=== PATIENT | male | born 1940 | race Caucasian/White ===

== ENCOUNTER 2017-02-15 10:40 | Outpatient (CLI) | payer MEDICARE, BC ==
[~2017-02-15] VITALS: Ht 182.9 cm; Wt 77.3 kg
--- NOTE | ~2017-02-15 | HEMODYNAMI ---
PATIENT:AVIVA BAER MEDICAL RECORD: [id number] : 36 LOCATION:[facility] ADMISSION DATE: 02/15/17 Generatedon:02/15/201713:20 Patient name: AVIVA BAER Patient #: [id number] SSN: [id number] : 1940 Date of study: 02/15/2017 Page: Of Hemodynamic Procedure Report Patient Data Patient Demographics Procedure consent was obtained First Name: AVIVA Gender: Male Last Name: BUFFY : 1940 Middle Initial: DENISHA Age: 77 year(s) Patient #: [id number] Race: SSN: [id number] Additional ID: [id number] Contact details [address]: [address] [place] [address] State: [place] City: [id number] Zip code: [address] Admission Admission Data Admission Date: 02/15/2017 Admission Time: 10:40 Arrival Date: 02/15/2017 Arrival Time: 13:00 Admit Source: Other Insurance Payor: Medicare Height (in.): 72 BSA: 1.97 (m2) Height (cm.): 182.88 BMI: 22.51 (kg/m2) Weight (lbs.): 166 Weight (kg.): 75.3 Lab Results Lab Result Date: 02/15/2017 Lab Result Time: 0:00 Biochemistry Name Units Result Min Max BUN mg/dl 24 --(----)-* 7 18 Creatinine mg/dl 0.9 --(-*--)-- 0.6 1.3 CBC Name Units Result Min Max Hemoglobin g/dl 15.8 --(--*-)-- 13.5 17.5 Procedure Procedure Types Cath Procedure Diagnostic Procedure [facility] w/Coronaries Miscellaneous Procedures Moderate Sedation up to 30 minutes Procedure Description Procedure Date Procedure Date: 02/15/2017 Procedure Start Time: 13:09 Procedure End Time: 13:19 Procedure Staff Name Function Henrry Patel MD Performing Physician Michelle Jessica RT Scrub Torsten George RN Nurse Fatuma Go RT Monitor Procedure Data Cath Procedure Fluoroscopy Diagnostic fluoroscopy Total fluoroscopy Time: 1.1 time: 1.1 min min Diagnostic fluoroscopy Total fluoroscopy dose: 336 dose: 336 mGy mGy Contrast Material Contrast Material Type Amount (ml) Isovue 370 46 Entry Location Entry Primary Successful Side Size Upsize Upsize Entry Closure Succes sful Closure Location (Fr) 1 (Fr) 2 (Fr) Remarks Device Remarks Femoral Right 5 Fr Exoseal artery Estimated blood loss: 5 ml Diagnostic catheters Device Type Used For End Catheter Placement Cordis 5Fr JL 4.0 Left Coronary Catheter (MP) Angiography Cordis 5Fr 3DRC Catheter Right Coronary (MP) Angiography Cordis 5Fr Pigtail LV Angiography Catheter (MP) Procedure Complications No complications Procedure Medications Medication Administration Route Dosage Oxygen NC 2 l/min Lidocaine 2% added to field 20 Heparin Flush Bag added to field 2 bags (1000units/500ml NS) 0.9% NaCl I.V. 100 ml/hr Versed I.V. 1 mg Fentanyl I.V. 50 mcg Fentanyl I.V. 50 mcg Hemodynamics Rest BSA: 1.97 (m2) HGB: 15.8 (g/dl) O2 Consumption: Estimated: 217.78 (ml/min) O2 Co nsumption indexed: Estimated:110.55 (ml/min/m) Heart Rate: 60 (bpm) Pressure Samples Time Site Value (mmHg) Purpose Heart Use Rate(bpm) 13:15 LV 131/10,12 Snapshot 60 13:15 AO 137/60(90) Pullback 60 13:15 LV 138/11,13 Pullback 60 Gradients Valve Time Site 1 Site 2 Mean SEP/DFP Peak To Heart Use (mmHg) (sec/min) Peak Rate (mmHg) (bpm) Aortic 13:15 LV AO 3 15 1 60 138/11,13 137/60(90) Calculations Valve P-P Mean Valve Index Valve Source Name Gradient Area Flow (cm2) Aortic 1 3 1 3 Snapshots Pre Cath Intra NCS Post Cath Vital Signs Time Heart Resp SPO2 etCO2 SX2mycd NIBP (mmHg) Rhythm Pain Sedation Rate (ipm) (%) (mmHg) (mmHg) Status Level (bpm) 12:57:21 67 23 97 0 0 144/73(121) NSR 0 (11) 10(A) , No pain 13:01:37 60 21 93 0 0 141/74(119) NSR 0 (11) 10(A) , No pain 13:05:53 59 17 99 0 0 124/70(107) NSR 0 (11) 10(A) , No pain 13:10:03 59 18 99 0 0 129/71(112) NSR 0 (11) 9(A) , No pain 13:14:15 60 16 100 0 0 127/72(108) NSR 0 (11) 9(A) , No pain 13:18:27 59 18 100 0 0 137/69(111) NSR 0 (11) 10(A) , No pain 13:19:57 59 17 100 0 0 134/64(109) NSR 0 (11) 10(A) , No pain Medications Time Medication Route Dose Verified Delivered Reason Notes Effe ctiveness by by 13:03:07 Oxygen NC 2 Henrry Buffie used for l/min [facility] Luis George RN procedure 13:03:15 Lidocaine 2% added 20ml Henrry Henrry for local to vial [facility] anesthetic field MD CALHOUN 13:03:23 Heparin Flush added 2 Henrry Henrry used for Bag to bags [facility] procedure (1000units/500ml field MD CALHOUN NS) 13:03:32 0.9% NaCl I.V. 100 Henrry Buffie Per ml/hr [facility] Luis George RN physician 13:06:09 Versed I.V. 1 mg Henrry Lanie for [facility] Luis George RN sedation 13:06:15 Fentanyl I.V. 50 Henrry [place] for mcg [facility] Luis George RN sedation 13:09:38 Fentanyl I.V. 50 Henrry [place] for mcg [facility] Luis George RN sedation Procedure Log Time Note 12:35:57 Informed consent obtained and on chart 12:36:03 Diagnostic Cath Status : Elective 12:36:57 Torsten George RN sent for patient. Start room use. 12:36:58 Time tracking: Regular hours 12:37:04 Plan of Care:Hemodynamics will remain stable., Cardiac rhythm will remain stable., Comfort level will be maintained., Respiratory function will remain adequate., Patient/ family verbilizes understanding of procedure., Procedure tolerated without complication., Recovers from procedure without complications.. 12:37:43 Admit Source: Other 12:37:50 Patient Height : 72 cm 12:38:01 Patient Weight : 166 kg 12:38:01 Insurance Payor : Medicare 12:38:13 Arrival Date: 02/15/2017 1:00:00 PM 12:41:16 Lab Result : Hemoglobin 15.8 g/dl 12:41:16 Lab Result : Creatinine 0.9 mg/dl 12:41:16 Lab Result : BUN 24 mg/dl 12:46:16 Patient received from Pre/Post Procedure Room to CCL 1 Alert and oriented. Tansferred to table in Supine position. 12:46:17 Warm blankets applied, and shashi hugger turned on for patient comfort. 12:46:18 Correct patient and procedure confirmed by team. 12:46:18 ECG and BP/O2 sat monitors applied to patient. 12:56:08 Baseline sample Acquired. 12:56:08 Vital chart was started 12:56:12 Rhythm: sinus rhythm 12:56:15 Full Disclosure recording started 12:56:21 H&P Date Dictated: 02/15/2017 Within 30 days and on chart., H&P Addendum completed by physician on day of procedure. (MUST COMPLETE FOR ALL OUTPATIENTS). 12:56:23 Pre-procedure instructions explained to patient. 12:56:23 Pre-op teaching completed and patient verbalized understanding. 12:56:25 Family in waiting room. 12:56:26 Patient NPO since Midnight. 12:57:27 Is the patient allergic to Iodine/contrast media? No. 12:57:29 Was the patient premedicated? No 12:57:34 Is patient on blood thinner?No 12:57:35 Patient diabetic? No. 12:57:39 Previous problem with sedation/anesthesia? No ? 12:57:43 Snore? Yes 12:57:44 Sleep apnea? No 12:57:45 Deviated septum? No 12:57:52 Opens mouth fully? Yes 12:57:53 Sticks out tongue? Yes 12:57:55 Airway obstruction? No ? 12:57:58 Dentures? No ? 12:58:02 Pre procedure: right dorsailis pedis pulse 1+ Palpable, but thready & weak; easily obliterated 12:58:05 Modified Jose Roberto's test Radial > 7 seconds. 12:58:07 Patient pain scale 0/10 ?. 12:58:13 IV patent on arrival in left forearm with 0.9% NaCl at [facility]. 12:58:16 Lab results completed and on chart. 12:58:21 Right groin area was prepped with chlora-prep and draped in sterile fashion 12:58:22 Alarms reviewed by R. N. 12:58:23 Sharps counted by scrub and verified by R.N. 12:58:59 Physician arrived 12:59:00 --------ALL STOP TIME OUT------ 12:59:00 Final Timeout: patient, procedure, and site verified with staff and physician. All members of the team are in agreement. 12:59:04 Right groin site verified by team. 12:59:07 Physical assessment completed. ASA score P 2 - A patient with mild systemic disease as per Henrry Patel MD. 12:59:12 Sedation plan: IV Moderate Sedation Versed, Fentanyl 12:59:27 Use device set Femoral Dx 12:59:28 Acist Syringe opened to sterile field. 12:59:29 Bag Decanter opened to sterile field. 12:59:29 Medline Cath Pack opened to sterile field. 12:59:30 Terumo 5Fr Mequon Sheath opened to sterile field. 12:59:30 St Flynn 260cm J .035 wire opened to sterile field. 13:00:27 Acist Hand Control opened to sterile field. 13:00:28 Acist Manifold opened to sterile field. 13:00:28 Diagnostic Infinity 5Fr Multipack catheter opened to sterile field. 13:00:29 Tegaderm 4 x 4 opened to sterile field. 13:03:07 Oxygen 2 l/min NC was administered by Torsten George RN; used for procedure; 13:03:15 Lidocaine 2% 20ml vial added to field was administered by Henrry Patel MD; for local anesthetic; 13:03:23 Heparin Flush Bag (1000units/500ml NS) 2 bags added to field was administered by Henrry Patel MD; used for procedure; 13:03:32 0.9% NaCl 100 ml/hr I.V. was administered by Torsten George RN; Per physician; 13:06:09 Versed 1 mg I.V. was administered by Buffie George RN; for sedation; 13:06:15 Fentanyl 50 mcg I.V. was administered by Torsten George RN; for sedation; 13:09:11 Procedure started. 13:09:14 Local anesthetic to right femoral artery with Lidocaine 2% by Henrry Patel MD.INITIAL ACCESS ONLY 13:09:28 A 5 Fr sheath was inserted into the Right Femoral artery 13:09:38 Fentanyl 50 mcg I.V. was administered by Torsten George RN; for sedation; 13:10:35 A Cordis 5Fr JL 4.0 Catheter (MP) was advanced over the wire and used for Left Coronary Angiography. 13:11:33 LCA angiography performed. 13:11:39 Injector settings: Ml/sec: 3, Volume: 6, 13:12:11 Catheter removed. 13:12:20 A Cordis 5Fr 3DRC Catheter (MP) was advanced over the wire and used for Right Coronary Angiography. 13:13:30 RCA angiography performed. 13:13:39 Injector settings: Ml/sec: 3, Volume: 6, 13:13:55 Catheter removed. 13:14:05 A Cordis 5Fr Pigtail Catheter (MP) was advanced over the wire and used for LV Angiography. 13:15:06 LV hemodynamics recorded. 13:15:08 LV gram done using MARCUS 13:15:12 Injector settings: Ml/sec: 5, Volume: 15, 13:15:21 EF : 55 % 13:16:22 Catheter removed. 13:16:38 Cordis 5Fr Exoseal opened to sterile field. 13:16:53 Sheath removed intact; hemostasis achieved with Exoseal to the Right Femoral artery. 13:16:57 Procedure ended.(Physican Out) 13:17:51 Fluoroscopy time 01.10 minutes. 13:18:13 Fluoroscopy dose: 336 mGy 13:18:13 Flurop Dose total: 336 13:18:21 Contrast amount:Isovue 370 46ml. 13:18:23 Sharps counted by scrub and verified by R.N. 13:18:25 Insertion/operative site no bleeding no hematoma. 13:18:42 Post-op/insertion site Right Femoral artery dressed using a 4 x 4 and Tegaderm. 13:18:46 Post right femoral artery:stable 13:18:53 Post Procedure Pulses reassessed and unchanged 13:18:57 Post procedure: right dorsailis pedis pulse 2+ Normal; easily identifiable; not easily obliterated. 13:19:02 Post procedure rhythm: unchanged. 13:19:06 Estimated blood loss: 5 ml 13:19:09 Post procedure instruction explained to patient.Patient verbalizes understanding. 13:19:09 Patient needs reinforcement of post procedure teaching. 13:19:25 Procedure type changed to Cath procedure, Diagnostic procedure, LHC, LHC w/Coronaries, Miscellaneous Procedures, Moderate Sedation up to 30 minutes 13:19:26 Procedure and supply charges have been captured, reviewed, submitted and are correct. 13:19:32 Procedure Complication : No complications 13:19:35 Vital chart was stopped 13:19:36 See physician's report for complete and final results. 13:19:38 Report given to Pre/Post Procedure Room. 13:19:42 Patient transfered to Pre/Post Procedure Room with Stretcher. 13:19:44 Procedure ended. 13:19:44 Full Disclosure recording stopped 13:20:04 End room use (Document Last) Device Usage Item Name Manufacture Quantity Catalog Hospital Part Current Minimal Lo t# / Number Charge Number Stock Stock Serial# Code Acist Acist 1 14696 813195 339256 169893 20 Syringe [employer] Bag Microtek 1 2002S 179690 97286 891769 5 Decanter [employer] Medline Cardinal 1 [id number] 18326 094195 5 Cath Pack Health Terumo 5Fr Terumo 1 [id number] 732257 438329 192919 [address] St Flynn 1 334335 455164 636339 259245 30 260cm J .035 wire Acist Hand Acist 1 62283 231302 574039 889345 5 Control Medical [employer] Inc Acist Acist 1 23082 742888 046017 955542 5 Manifold Medical [employer] Inc Diagnostic Cardinal 1 [id number] 911495 17036 375240 30 Infinity Health 5Fr Multipack catheter Tegaderm 4 3M 1 1626W 645329 388116 404705 5 x 4 Cordis 5Fr Cardinal 1 160378 5 JL 4.0 Health Catheter (MP) Cordis 5Fr Cardinal 1 129969 5 3DRC Health Catheter (MP) Cordis 5Fr Cardinal 1 390583 5 Pigtail Health Catheter (MP) Cordis 5Fr Cardinal 1 EX500 586856 662099 022086 10 [facility] Signature Audit [place] Stage Time Signature Unsigned Intra-Procedure 02/15/2017 Fatuma Go 1:20:54 PM RT(R) Signatures Monitor : Fatuma Go RT Signature : Date : Time : [facility] [address] [place] [address]
[~2017-02-15 10:40] MED LIST: BAYER CHEWABLE81 MG PO; BETAPACE 80 MG80 MG PO; PLAVIX75 MG PO; TIMOPTIC 0.25% O5 M1 EACH EYE
[2017-02-15] MEDS ORDERED: ELIQUIS5 MG PO (11:05)
[2017-02-15] MEDS ORDERED: MULTIPLE VITAMI1 TA1 PO (11:05)
[2017-02-15] MEDS ORDERED: BETAPACE160 MG PO (11:06)
[2017-02-15] MEDS ORDERED: BAYER CHEWABLE81 MG PO (11:06)
[2017-02-15] MEDS ORDERED: ARTIFICIAL TEA3.5 G2 EACH EYE (11:07)
[2017-02-15] MEDS ORDERED: XALATAN 0.0052.5 ML EACH EYE (11:08)
[2017-02-15 11:16] VITALS: BP 145/51; Ht 182.9 cm; Wt 77.3 kg
[2017-02-15 11:20] LABS: BASOPHILS 0.4 % (0-2); EOSINOPHILS 5.3 % (0-7); HEMATOCRIT 47.3 % (42.0-54.0); HEMOGLOBIN 15.8 g/dL (13.5-17.5); IMMATURE GRANULOCYTES 0.4 % (0-5); LYMPHOCYTES 23.9 % (15-50); MCH 31.7 pg (26.0-34.0); MCHC 33.4 g/dL (31.0-37.0); MEAN PLATELET VOLUME 10.1 fL (7.4-10.4); MONOCYTES 11.8 % (2-11); NEUTROPHILS 58.2 % (40-80); PLATELET COUNT 183 10x3/uL (130-400); RBC 4.98 10x6/uL (4.20-6.10); RDW 13.5 % (11.5-14.5); WBC 8.6 10x3/uL (4.8-10.8)
[2017-02-15 12:05] LABS: CALC OSMOLALITY 282 mosm/kg (275-300); CARBON DIOXIDE 30.1 mmol/L (21.0-32.0); CHLORIDE - SERUM 105 mmol/L (98-107); CREATININE - SERUM 0.9 mg/dL (0.6-1.3); GLUCOSE 102 mg/dL (74-106); POTASSIUM - SERUM 4.3 mmol/L (3.5-5.1); SODIUM 140 mmol/L (136-145); UREA NITROGEN 24 mg/dL (7-18); eGFR NON AFRICAN AMERICAN 86 mL/min (90-120)
--- NOTE | 2017-02-15 14:59 | NUR ---
1345 LYING FLAT, ROOM AIR WITH NO DISTRESS. NSR RATE 60 W NO C/O CHEST PAIN. PULSES PALP X 4. R GROIN 5F EXOSEAL C/D/I WITH NO HEMATOMA OR BLEEDING. AT BEDSIDE. 1415 R GROIN REMAINS C/D/I WITH NO HEMATOMA OR BLEEDING. ROOM AIR W NO DISTRESS, VITALS ALL WNL.
--- NOTE | 2017-02-15 15:14 | NUR ---
HOB ELEVATED 30DEGREES, WILL MONITOR R GROIN FOR BLEEDING.
--- NOTE | 2017-02-15 15:30 | NUR ---
PIV REMOVED FROM LEFT ARM WITH BANDAID APPLIED. UP TO BEDSIDE TO DRESS WITH ASSIST FROM .
--- NOTE | 2017-02-15 15:36 | NUR ---
R GROIN REMAINS C/D/I WITH NO HEMATOMA OR BLEEDING. D/C INSTRUCTIONS DISCUSSED WITH PATIENT AND AT BEDSIDE. AMBULATED TO BATHROOM TO VOID. R GROIN REMAINS C/D/I WITH NO HEMATOMA OR BLEEDING. WHEELED OUT VIA WHEELCHAIR BY CATH TEAM.
--- NOTE | 2017-02-16 08:44 | OP ---
PATIENT NAME: AVIVA BAER MEDICAL RECORD: [id number] :38 LOCATION:D.[facility] ADMISSION DATE: SURGEON: TAB PEREZ MD DATE OF OPERATION: 02/15/2017 PROCEDURE: Left heart catheterization, selective coronary angiography, right femoral approach. CATHETERS: A 5-Cymro sheath, 5/4 left and right Mirna, 5/4 pig. The procedure was well tolerated. The patient returned to the olson, sheath was removed. ExoSeal device placed. FINDINGS: Left ventriculography in the 30-degree MARCUS view: Normal wall motion and normal systolic function. CORONARY ANATOMY: Left main: Left main is free of disease. LAD: LAD is free of disease. The area of previous stenting is widely patent. CIRCUMFLEX: Free of disease. RIGHT CORONARY ARTERY: Somewhat codominant system, free of disease. IMPRESSION: Normal systolic function. Normal coronary anatomy. TRANSINT:[id number] Voice Confirmation ID: [id number] DOCUMENT ID: [id number] TAB PEREZ MD at 0844 CC: [id number] DICTATION DATE: 02/15/17 1320 INJECTION MOLD TOOLING TECHNICIAN: 02/15/171910 DEP CLI 02/15/17 [facility] [address] [place] [address]
== END 2017-02-15 15:56 | disposition home or self-care (01) ==
LOC: D.CATH 10:40
PROVIDERS: Internal Medicine Interventional Cardiology
DX: I25.119 Atherosclerotic heart disease of native coronary artery with unspecified angina pectoris (principal); Z95.0 Presence of cardiac pacemaker; Z01.812 Encounter for preprocedural laboratory examination; I10 Essential (primary) hypertension

== ENCOUNTER → 2019-03-30 08:20 | Outpatient (CLI) | payer MEDICARE, BC ==
[2017-02-15 11:16] VITALS: BMI 23.1
[~2019-03-30 08:20] MED LIST changes: +ARTIFICIAL TEA3.5 G2 EACH EYE; +BETAPACE160 MG PO; +ELIQUIS5 MG PO; +MULTIPLE VITAMI1 TA1 PO; +XALATAN 0.0052.5 ML EACH EYE
--- NOTE | 2019-04-02 12:08 | EC ---
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 Ao 102 cm/sec RVOT cm/sec RA cm/sec PA cm/sec AV Gradient Peak 4.17 mmHg AV Mean 2.23 mmHg AV Area 3.4 cm MV Gradient Peak 2.32 mmHg MV Mean 0.98 mmHg MV Area cm COMMENTS: [employer] Sales Representative: Faye SAENZ Compress Engineer: 3 Dr. Patel TAPE# PACS Pericardial Effusion N DATE OF SERVICE: 03/30/2019 Adequate 2-D echo, color-flow and spectral Doppler, and M-mode. LVH is present. LV internal dimensions are normal. Wall motion is normal. EF is greater than or equal to 55%. Aortic valve sclerosis without stenosis by Doppler interrogation. Left atrium is dilated at 4.4 cm. Mitral valve shows no prolapse. Mild MR. Right-sided chambers are grossly normal. Trace TR. TRANSINT:[id number] Voice Confirmation ID: [id number] DOCUMENT ID: [id number] ECHOCARDIOGRAM REPORT [id number] AVIVA BAER GREGORY A MD at 1208 CC: [id number] DICTATION DATE: 04/02/1950 ELECTRICAL LOGGER: 04/02/19 1157 DEP CLI 03/30/19 [place] [id number] [place] [id number]
== END | disposition home or self-care (01) ==
LOC: D.HCCARDIO 03-20 09:00
PROVIDERS: ATTEND Internal Medicine Interventional Cardiology
DX: I48.91 Unspecified atrial fibrillation (principal)

== ENCOUNTER → 2020-05-16 10:26 | Outpatient (CLI) | payer MEDICARE, BC ==
[2017-02-15 11:16] VITALS: BMI 23.1
--- NOTE | 2020-05-20 08:41 | EC ---
PATIENT:AVIVA BAER DATE OF SERVICE: 05/16/20 SEX: M MEDICAL RECORD: [id number] DATE OF : 36 [facility] AGE OF PATIENT: 80 ADMISSION DATE: 05/16/20 REFERRING PHYSICIAN: INTERPRETING PHYSICIAN: TAB PEREZ MD ECHOCARDIOGRAM REPORT ECHO CHARGES 4 ECHO COMPLETE Date: 05/16/20 CLINICAL DIAGNOSIS: ECHOCARDIOGRAPHIC MEASUREMENTS (adult normal given) AC root (d.<3.7cm) 2.9 cm LV Septum d (<1.2 cm> 0.9 cm Valve Excursion 1.5 cm LV Septum (systole) 1.0 cm Left Atria (s.<4.0cm> 2.5 cm LVPW d(<1.2cm) 1.0 cm RV (d.<2.3cm) 1.9 cm LVPW (sytole) 1.1 cm LV diastole(<5.6CM) 5.2 cm MV E-F(>70mm/sec) cm LV systole 3.8 cm LVOT Diameter 1.7 cm MV exc.(>10mm) cm Est.ejection fraction (50-75%) % DOPPLER: LVIT cm/sec A 55 cm/sec E 50 cm/sec LA cm/sec RVSP 15.6 mmHg LVOT 67 cm/sec AOP1/2T m/s Asc. Ao 97 cm/sec RVOT 50 cm/sec RA cm/sec PA 65 cm/sec AV Gradient Peak 3.8 mmHg AV Mean 1.7 mmHg AV Area 1.4 cm MV Gradient Peak 4.1 mmHg MV Mean 1.3 mmHg MV Area cm COMMENTS: Copy Supervisor: Braeden [facility] Cardiothoracic Icu Rn: 3 Dr. Patel TAPE# PACS Pericardial Effusion N DATE OF SERVICE: Adequate 2D, color-flow imaging, spectral Doppler, and M-mode. No LVH. LV internal dimension is normal. Wall motion is normal. EF is greater than or equal to 55%. Aortic valve is tricuspid. No evidence of stenosis by Doppler interrogation. Left atrium is normal. Mitral valve shows no prolapse. Trivial MR. Right-sided chambers are grossly normal. Trivial TR. TRANSINT:[id number] Voice Confirmation ID: [id number] DOCUMENT ID: [id number] ECHOCARDIOGRAM REPORT [id number] AVIVA BAER TAB PEREZ MD at 0841 CC: [id number] DICTATION DATE: 05/19/20 1332 POSTAL CARRIER: 05/19/20 2212 DEP CLI 05/16/20 [place] [id number] [place] [address]
== END | disposition home or self-care (01) ==
LOC: D.HCCECHO 05-01 09:00
PROVIDERS: ATTEND Internal Medicine Interventional Cardiology
DX: I25.10 Atherosclerotic heart disease of native coronary artery without angina pectoris (principal)